=== PATIENT | male | born 1955 | race Caucasian/White ===

== ENCOUNTER → 2017-06-28 | Outpatient (CLI) | payer OTHER ==
[2017-06-28 09:13] LABS: ALT 48 U/L (21-72); AST 45 U/L (17-59); Alkaline Phosphatase 65 U/L (38-126); Anion Gap 12 mmol/L; Blood Urea Nitrogen 21 mg/dL (9-20); Calcium 9.5 mg/dL (8.4-10.2); Carbon Dioxide 24 mmol/L (22-30); Chloride 103 mmol/L (98-107); Cholesterol 162 mg/dL (<200); Glucose 193 mg/dL (74-99); HDL Cholesterol 46 mg/dL (40-60); LDL Cholesterol,Calculated 79 mg/dL (0-99); Potassium 4.8 mmol/L (3.5-5.1); Sodium 139 mmol/L (137-145); Total Bilirubin 0.6 mg/dL (0.2-1.3); Total Protein 6.9 g/dL (6.3-8.2); Triglycerides 186 mg/dL (<150)
[2017-06-28 18:40] LABS: Hemoglobin A1C 9.4 % (4.0-6.0)
== END | disposition home or self-care (01) ==
LOC: LABWHC1 08:05
PROVIDERS: ATTEND Internal Medicine Endocrinology, Diabetes & Metabolism
DX: E11.65 Type 2 diabetes mellitus with hyperglycemia (principal)
CPT/HCPCS: 36415; 80053; 80061; 82043; 82570; 83036

== ENCOUNTER 2017-12-02 00:17 | Emergency (ER) | payer OTHER ==
[2017-12-02 00:31] VITALS: RESP 18
[2017-12-02] MEDS ORDERED: SODIUM CHLORIDE 0.9% 1,000 ML IV STA (00:39)
[2017-12-02] MEDS ORDERED: ONDANSETRON 4 MG/2 ML VIAL IVP STA (00:39)
[2017-12-02] MEDS ORDERED: MORPHINE SULFATE 4 MG/ML SYRINGE IV STA (00:39)
--- NOTE | 2017-12-02 00:52 | ED ---
Abdominal Pain HPI - General Source: patient Mode of arrival: ambulatory Limitations: no limitations <Julia Turcios - Last Filed: 12/02/17 05:02> <Inessa Espana - Last Filed: 12/02/17 08:36> - General Chief Complaint: Abdominal Pain Stated Complaint: groin pain Time Seen by Provider: 12/02/17 00:34 - History of Present Illness Initial Comments: 62-year-old male patient presents to the emergency department today for evaluation of right lower quadrant abdominal pain. Patient states that the pain started around 12:00 this afternoon. Patient states that didn't pain has gradually worsened doesn't has progressed. Patient states the pain is severe and radiates across to the left lower quadrant. Patient states that he has been nauseated but has not vomited. He denies any fevers or chills with this. He denies any constipation or diarrhea. Denies any hematuria, dysuria, urinary frequency, urinary urgency. He denies any radiation of the pain into his back. Denies any history of similar symptoms. Patient has had cholecystectomy but no other abdominal surgeries. Patient denies any recent rash, shortness breath, chest pain, numbness, tingling, dizziness, weakness, headache, visual changes, or any other complaints. (Julia Turcios) - Related Data Home Medications Medication Instructions Recorded Confirmed Lisinopril [Zestril] 10 mg PO DAILY 09/07/15 09/07/15 [place]-3 Fatty Acids/Fish Oil [Fish 2 cap PO DAILY 09/07/15 09/07/15 Oil 1,000 mg Softgel] Potassium Gluconate 595mg 595 mg PO BID 09/07/15 09/07/15 metFORMIN HCL [Glucophage] 500 mg PO DAILY 09/07/15 09/07/15 Allergies Allergy/AdvReac Type Severity Reaction Status Date / Time No Known Allergies Allergy Verified 12/02/17 00:31 Review of Systems ROS Other: All systems not noted in ROS Statement are negative. <Julia Turcios - Last Filed: 12/02/17 05:02> ROS Other: All systems not noted in ROS Statement are negative. <Inessa Espana - Last Filed: 12/02/17 08:36> ROS Statement: Those systems with pertinent positive or pertinent negative responses have been documented in the HPI. Past Medical History Past Medical History: Diabetes Mellitus History of Any Multi-Drug Resistant Organisms: None Reported Past Surgical History: Adenoidectomy, Cholecystectomy, Orthopedic Surgery, Tonsillectomy Past Psychological History: No Psychological Hx Reported Smoking Status: Former smoker Past Alcohol Use History: Occasional Past Drug Use History: None Reported <Julia Turcios - Last Filed: 12/02/17 05:02> General Exam Limitations: no limitations General appearance: alert, in no apparent distress, other (This is a well- developed, obese adult male patient in mild distress related to pain. Vital signs upon presentation are temperature 98.7F, pulse 82, respirations 18, blood pressure 150/93, pulse ox 97% on room air.) Eye exam: Present: normal appearance, PERRL, EOMI. Absent: scleral icterus, conjunctival injection, periorbital swelling ENT exam: Present: normal exam, normal oropharynx, mucous membranes moist Respiratory exam: Present: normal lung sounds bilaterally. Absent: respiratory distress, wheezes, rales, rhonchi, stridor Cardiovascular Exam: Present: regular rate, normal rhythm, normal heart sounds. Absent: systolic murmur, diastolic murmur, rubs, gallop, clicks GI/Abdominal exam: Present: soft, tenderness (Right lower quadrant tenderness, suprapubic tenderness), guarding, normal bowel sounds. Absent: distended, rebound, rigid Back exam: Present: normal inspection. Absent: CVA tenderness (R), CVA tenderness (L) Neurological exam: Present: alert, oriented X3, CN II-XII intact Psychiatric exam: Present: normal affect, normal mood Skin exam: Present: warm, dry, intact, normal color. Absent: rash <Julia Turcios M - Last Filed: 12/02/17 05:02> Vital Signs 12/02/17 12/02/17 12/02/17 00:28 02:18 03:29 Temperature 98.7 F 97.0 F L Pulse Rate 82 79 Respiratory 18 18 18 Rate Blood Pressure 158/93 158/67 O2 Sat by Pulse 97 96 Oximetry 12/02/17 04:38 Temperature Pulse Rate 70 Respiratory 18 Rate Blood Pressure 137/67 O2 Sat by Pulse 95 Oximetry Medical Decision Making - Lab Data Result diagrams: 12/02/17 00:55 12/02/17 00:55 - Radiology Data Radiology results: report reviewed, image reviewed <Julia Turcios - Last Filed: 12/02/17 05:02> - Lab Data Result diagrams: 12/02/17 00:55 12/02/17 00:55 <Inessa Espana - Last Filed: 12/02/17 08:36> - Medical Decision Making 62-year-old male patient presents to the emergency department today for evaluation of right lower quadrant abdominal pain that radiates across his lower abdomen. Physical examination did reveal some right lower quadrant tenderness, mild. Umbilical tenderness. Labs reviewed and did reveal an elevated white blood cell count at 12.5. Patient is afebrile with normal vital signs. Computed tomography scan of the abdomen and pelvis was obtained and did show presence of a fat-containing umbilical hernia and a calcification to the appendix without evidence of appendicitis. I did discuss findings and results with the patient. After receiving pain medication here in the department his symptoms are improved. He is instructed to follow-up with an abdominal surgeon for further evaluation of both the hernia and the appendix abnormalities. Patient has seen and had procedures by Dr. Jenkins in the past and requests to be referred to him. He is instructed to return here immediately should he develop any new, worsening, or concerning symptoms. Return parameters were discussed in detail. He verbalizes understanding and agrees with this plan. (Julia Turcios) I was available for consultation in the emergency department. The history and physical exam were done by the midlevel provider. I was consulted for this patient's care. I reviewed the case with the midlevel provider and based on their presentation of the patient, I agree with the assessment, medical decision making and plan of care as documented. (Inessa Espana) - Lab Data Lab Results 12/02/17 12/02/17 12/02/17 Range/Units 00:55 00:55 00:55 WBC 12.5 H (3.8-10.6) k/uL RBC 5.00 (4.30-5.90) m/uL Hgb 14.7 (13.0-17.5) gm/dL Hct 45.3 (39.0-53.0) % MCV 90.6 (80.0-100.0) fL MCH 29.3 (25.0-35.0) pg MCHC 32.4 (31.0-37.0) g/dL RDW 13.7 (11.5-15.5) % Plt Count 227 (150-450) k/uL Neutrophils % 64 % Lymphocytes % 25 % Monocytes % 7 % Eosinophils % 3 % Basophils % 1 % Neutrophils # 7.9 H (1.3-7.7) k/uL Lymphocytes # 3.1 (1.0-4.8) k/uL Monocytes # 0.9 (0-1.0) k/uL Eosinophils # 0.4 (0-0.7) k/uL Basophils # 0.1 (0-0.2) k/uL Sodium 136 L (137-145) mmol/L Potassium 4.5 (3.5-5.1) mmol/L Chloride 104 (98-107) mmol/L Carbon Dioxide 22 (22-30) mmol/L Anion Gap 10 mmol/L BUN 17 (9-20) mg/dL Creatinine 0.67 (0.66-1.25) mg/dL Est GFR (CKD-EPI)AfAm >90 (>60 ml/min/1.73 sqM) Est GFR (CKD-EPI)NonAf >90 (>60 ml/min/1.73 sqM) Glucose 204 H (74-99) mg/dL Plasma Lactic Acid Luis M 1.9 (0.7-2.0) mmol/L Calcium 9.4 (8.4-10.2) mg/dL Total Bilirubin 0.5 (0.2-1.3) mg/dL AST 30 (17-59) U/L ALT 37 (21-72) U/L Alkaline Phosphatase 60 (38-126) U/L Total Protein 6.8 (6.3-8.2) g/dL Albumin 3.8 (3.5-5.0) g/dL Amylase 52 (30-110) U/L Lipase 86 (23-300) U/L Urine Color Urine Appearance (Clear) Urine pH (5.0-8.0) Ur Specific [place] (1.001-1.035) Urine Protein (Negative) Urine Glucose (UA) (Negative) Urine Ketones (Negative) Urine Blood (Negative) Urine Nitrite (Negative) Urine Bilirubin (Negative) Urine Urobilinogen (<2.0) mg/dL Ur Leukocyte Esterase (Negative) 09/25/18 Range/Units 03:28 WBC (3.8-10.6) k/uL RBC (4.30-5.90) m/uL Hgb (13.0-17.5) gm/dL Hct (39.0-53.0) % MCV (80.0-100.0) fL MCH (25.0-35.0) pg MCHC (31.0-37.0) g/dL RDW (11.5-15.5) % Plt Count (150-450) k/uL Neutrophils % % Lymphocytes % % Monocytes % % Eosinophils % % Basophils % % Neutrophils # (1.3-7.7) k/uL Lymphocytes # (1.0-4.8) k/uL Monocytes # (0-1.0) k/uL Eosinophils # (0-0.7) k/uL Basophils # (0-0.2) k/uL Sodium (137-145) mmol/L Potassium (3.5-5.1) mmol/L Chloride (98-107) mmol/L Carbon Dioxide (22-30) mmol/L Anion Gap mmol/L BUN (9-20) mg/dL Creatinine (0.66-1.25) mg/dL Est GFR (CKD-EPI)AfAm (>60 ml/min/1.73 sqM) Est GFR (CKD-EPI)NonAf (>60 ml/min/1.73 sqM) Glucose (74-99) mg/dL Plasma Lactic Acid Luis M (0.7-2.0) mmol/L Calcium (8.4-10.2) mg/dL Total Bilirubin (0.2-1.3) mg/dL AST (17-59) U/L ALT (21-72) U/L Alkaline Phosphatase (38-126) U/L Total Protein (6.3-8.2) g/dL Albumin (3.5-5.0) g/dL Amylase (30-110) U/L Lipase (23-300) U/L Urine Color Light Yellow Urine Appearance Clear (Clear) Urine pH 5.0 (5.0-8.0) Ur Specific [place] 1.050 H (1.001-1.035) Urine Protein Negative (Negative) Urine Glucose (UA) Trace H (Negative) Urine Ketones Negative (Negative) Urine Blood Negative (Negative) Urine Nitrite Negative (Negative) Urine Bilirubin Negative (Negative) Urine Urobilinogen <2.0 (<2.0) mg/dL Ur Leukocyte Esterase Negative (Negative) - Radiology Data CT abdomen and pelvis with contrast was obtained. Report was reviewed in its entirety. Impression by Dr. Chowdhury shows spondylotic changes in the lumbar spine. Appendix calcification could relate to previous contrast or appendicolith. No definite sign of appendicitis. Incarcerated umbilical hernia contains fat. No evidence of scrotal or inguinal hernia. Do not see across her groin pain. (Julia Turcios) Disposition Is patient prescribed a controlled substance at d/c from ED?: No Time of Disposition: 04:21 <Julia Turcios - Last Filed: 12/02/17 05:02> <Inessa Espana - Last Filed: 12/02/17 08:36> Clinical Impression: Abdominal pain, Appendicolith, Umbilical hernia Disposition: HOME SELF-CARE Condition: Good Instructions: Umbilical Hernia (ED), Abdominal Pain (ED) Additional Instructions: Follow-up with Dr. Sewell for further evaluation of your umbilical hernia and calcification to the appendix. Take medications as directed. Return to the emergency department for any new, worsening, or concerning symptoms. Referrals: Cody He DO [Primary Care Provider] - 1-2 days Syed Sewell MD [Medical Doctor] - 1-2 days
[2017-12-02 01:33] LABS: Basophils # (A) 0.1 k/uL (0-0.2); Basophils % (A) 1 %; Eosinophils # (A) 0.4 k/uL (0-0.7); Eosinophils % (A) 3 %; HCT 45.3 % (39.0-53.0); HGB 14.7 gm/dL (13.0-17.5); Lymphocytes # (A) 3.1 k/uL (1.0-4.8); Lymphocytes % (A) 25 %; MCH 29.3 pg (25.0-35.0); MCHC 32.4 g/dL (31.0-37.0); MCV 90.6 fL (80.0-100.0); Mean Platelet Volume 6.8; Monocytes # (A) 0.9 k/uL (0-1.0); Monocytes % (A) 7 %; Neutrophils # (A) 7.9 k/uL (1.3-7.7); Neutrophils % (A) 64 %; Platelet Count 227 k/uL (150-450); RDW 13.7 % (11.5-15.5); WBC 12.5 k/uL (3.8-10.6)
[2017-12-02 02:11] LABS: ALT 37 U/L (21-72); AST 30 U/L (17-59); Albumin 3.8 g/dL (3.5-5.0); Alkaline Phosphatase 60 U/L (38-126); Amylase 52 U/L (30-110); Anion Gap 10 mmol/L; Blood Urea Nitrogen 17 mg/dL (9-20); Calcium 9.4 mg/dL (8.4-10.2); Carbon Dioxide 22 mmol/L (22-30); Chloride 104 mmol/L (98-107); Glucose 204 mg/dL (74-99); Lipase 86 U/L (23-300); Potassium 4.5 mmol/L (3.5-5.1); Sodium 136 mmol/L (137-145); Total Bilirubin 0.5 mg/dL (0.2-1.3); Total Protein 6.8 g/dL (6.3-8.2)
--- NOTE | 2017-12-02 02:53 | CT ---
EXAMINATION TYPE: CT abdomen pelvis w con DATE OF EXAM: 12/02/2017 COMPARISON: None HISTORY: Pt. c/o bi-lateral groin pain CT DLP: 3952.80 mGycm Automated exposure control for dose reduction was used. TECHNIQUE: Helical acquisition of images was performed from the lung bases through the pelvis. CONTRAST: Performed without Oral Contrast and with IV Contrast, patient injected with 100 mL of Isovue 300. FINDINGS: Lung bases are clear. There is no pleural effusion. Heart size is normal. There is small hiatal hernia. Stomach appears normal. Liver spleen pancreas appear normal. There are clips from cholecystectomy. Bile ducts are not dilated. There is no adrenal mass. Kidneys show satisf actory contrast opacification. There is no hydronephrosis. I see no renal calculus. ureters are not d ilated. There is no retroperitoneal adenopathy. There is no mesenteric adenopathy. There is umbilical hernia that contains fat. This measures 8 cm in diameter. I see no intestinal wall thickening. There are no dilated loops. There is no sign of a bowel obstruction. There is some calcification in the ap pendix. I see no sign of appendicitis. Bladder distends smoothly. There is no evidence of a pelvic ma ss. There is no inguinal hernia. There are spondylotic changes in the lumbar spine. I see no bony joan tructive process. Abdominal aorta is atheromatous. IMPRESSION: SPONDYLOTIC CHANGES IN THE LUMBAR SPINE. APPENDIX CALCIFICATION COULD RELATE TO PREVIOUS CONTRAST OR APPENDICOLITH. NO DEFINITE SIGN OF APPENDICITIS. INCARCERATED UMBILICAL HERNIA CONTAINS FAT. NO EVIDE NCE OF SCROTAL OR INGUINAL HERNIA. I DO NOT SEE CAUSE FOR GROIN PAIN.
[2017-12-02] MEDS ORDERED: MORPHINE SULFATE 4 MG/ML SYRINGE IVP STA (03:26)
[2017-12-02 03:30] VITALS: TEMP 97
[2017-12-02 04:00] LABS: Appearance,Urine Clear (Clear); Bilirubin,Urine Negative (Negative); Blood,Urine Negative (Negative); Color,Urine Light Yellow; Glucose,Urine (UA) Trace (Negative); Ketones,Urine Negative (Negative); Leukocyte Esterase,Urine Negative (Negative); Nitrite,Urine Negative (Negative); Protein,Urine Negative (Negative); Urobilinogen,Urine <2.0 mg/dL (<2.0)
[2017-12-02] MEDS ORDERED: ACET/COD 300 MG/30 MG STARTER PACK 6 TAB BTL PO STA (04:21)
[2017-12-02] MEDS ORDERED: ONDANSETRON 4 MG ODT STARTER PACK 2 TAB BTL PO STA (04:21)
[2017-12-02 04:40] VITALS: BP 137/67; PULSE 70
== END 2017-12-02 04:43 | disposition home or self-care (01) ==
LOC: EC 00:17
DX: K42.9 Umbilical hernia without obstruction or gangrene (principal); K38.9 Disease of appendix, unspecified; E11.9 Type 2 diabetes mellitus without complications; Z79.84 Long term (current) use of oral hypoglycemic drugs; Z79.899 Other long term (current) drug therapy; Z87.891 Personal history of nicotine dependence; Z90.49 Acquired absence of other specified parts of digestive tract
CPT/HCPCS: 36415; 80053; 82150; 83605; 83690; 85025; 81003; 87040; 74177; 99284; 96374; 96375; 96376 ×2; 96361 ×3; J2270; J2405; S0119; Q9967

== ENCOUNTER 2017-12-03 18:47 | Inpatient (IN) | payer OTHER ==
--- NOTE | 2017-12-03 19:00 | P.GSHP ---
History of Present Illness H&P Date: 12/03/17 Chief Complaint: Acute appendicitis Patient seen in the office today. He presents with a 48 hour history of right lower quadrant pain. Increasing in severity. Some nausea but no vomiting. Decreased appetite. No fevers. CAT scan in the ER yesterday showed an appendicolith without inflammatory changes. Repeat CAT scan with oral contrast today shows increased inflammatory changes. Past Medical History Past Medical History: Diabetes Mellitus History of Any Multi-Drug Resistant Organisms: None Reported Past Surgical History: Adenoidectomy, Cholecystectomy, Orthopedic Surgery, Tonsillectomy Past Psychological History: No Psychological Hx Reported Smoking Status: Former smoker Past Alcohol Use History: Occasional Past Drug Use History: None Reported Medications and Allergies Home Medications Medication Instructions Recorded Confirmed Type Lisinopril [Zestril] 10 mg PO DAILY 09/07/15 09/07/15 History [place]-3 Fatty Acids/Fish Oil [Fish 2 cap PO DAILY 09/07/15 09/07/15 History Oil 1,000 mg Softgel] Potassium Gluconate 595mg 595 mg PO BID 09/07/15 09/07/15 History metFORMIN HCL [Glucophage] 500 mg PO DAILY 09/07/15 09/07/15 History Allergies Allergy/AdvReac Type Severity Reaction Status Date / Time No Known Allergies Allergy Verified 12/02/17 00:31 Surgical - Exam Physical exam: General: Well-developed, well-nourished HEENT: Normocephalic, sclerae nonicteric Abdomen: Right lower quadrant tenderness, large protuberant abdomen, nondistended Extremities: No edema Neuro: Alert and oriented Assessment and Plan (1) Acute appendicitis Narrative/Plan: Clinical scenario discussed with the patient. Recent CAT scan findings reviewed. We'll proceed with laparoscopic, possible open appendectomy. Risks of bleeding, infection, conversion, bowel injury, ureteral injury, abscess, possible need for laparotomy. Patient understands and wishes to proceed. Current Visit: Yes Status: Acute Code(s): K35.80 - UNSPECIFIED ACUTE APPENDICITIS SNOMED Code(s): 52243521
[2017-12-03] MEDS ORDERED: PIPERACILLIN-TAZOBACTAM 3.375 GM in DEXTROSE/WATER 1 50ML.BAG IVPB STA (19:02)
[2017-12-03] MEDS ORDERED: LACTATED RINGERS 1,000 ML IV ONE ×2 (19:20→21:30)
[2017-12-03 19:30] LABS: Glucose,Whole Blood 164 mg/dL (75-99)
[2017-12-03] MEDS ORDERED: HYDROmorphone (PF) 1 MG/ML ONE (19:30)
[2017-12-03] MEDS ORDERED: LIDOCAINE 1% INJ 10MG/ML (20 ML MDV) ONE (19:30)
[2017-12-03] MEDS ORDERED: NEOSTIGMINE 1 MG/ML 10 ML VIAL ONE (19:30)
[2017-12-03] MEDS ORDERED: ONDANSETRON 4 MG/2 ML VIAL ONE (19:30)
[2017-12-03] MEDS ORDERED: ROCURONIUM BROMIDE 10 MG/ML 10 ML VIAL IV ONE (19:30)
[2017-12-03] MEDS ORDERED: GLYCOPYRROLATE 0.2 MG/ML 2 ML VIAL ONE (19:30)
[2017-12-03] MEDS ORDERED: SUCCINYLCHOLINE CHLORIDE VIAL 200 MG/10 ML VIAL IV ONE (19:30)
[2017-12-03] MEDS ORDERED: PROPOFOL 10 MG/ML 20 ML VIAL IV ONE (19:30)
[2017-12-03] MEDS ORDERED: MIDAZOLAM 2 MG/2 ML VIAL ONE (19:30)
[2017-12-03] MEDS ORDERED: fentaNYL (PF) 50 MCG/ML 2 ML AMP ONE (19:30)
[2017-12-03] MEDS ORDERED: HEPARIN SODIUM,PORCINE 5,000 UNIT/ML 1 ML VIAL ONE (19:30)
[2017-12-03] MEDS ORDERED: SODIUM CHLORIDE 0.9% 50 ML with ceFAZolin 3,000 MG IV ONE ×2 (19:45)
[2017-12-03] MEDS ORDERED: BUPIVACAIN-EPI 0.25%-1:200,000 30 ML VIAL SQ ONE ×2 (19:55)
[2017-12-03] MEDS ORDERED: NALOXONE 0.4 MG/ML 1 ML VIAL IV PRN (20:54)
[2017-12-03] MEDS ORDERED: ACETAMINOPHEN TAB 325 MG TAB PO PRN (20:54)
[2017-12-03] MEDS ORDERED: HYDROmorphone 1 MG/ML 1 ML SYRINGE IVP PRN (20:54)
[2017-12-03] MEDS ORDERED: METOCLOPRAMIDE 5 MG/ML 2 ML VIAL IVP PRN (20:54)
[2017-12-03] MEDS ORDERED: ONDANSETRON 4 MG/2 ML VIAL IVP PRN (20:54)
--- NOTE | 2017-12-03 21:01 | P.OP ---
Date of Procedure: 12/03/17 Procedure(s) Performed: PREOPERATIVE DIAGNOSIS: Acute appendicitis POSTOPERATIVE DIAGNOSIS: Same with small perforation PROCEDURE: Laparoscopic appendectomy SURGEON: Melodie EBL: Total ANESTHESIA: General COMPLICATIONS: None OPERATIVE PROCEDURE: The patient was brought and placed on the operating table in the supine position. The patient was placed under general anesthesia. The abdomen was prepped and draped in the usual sterile fashion. A small incision was made in the left lower quadrant. The optical 5 mm trocar was used to enter the peritoneal cavity at that location. This was later switched to a 12 mm trocar. Insufflation took place to 15 mmHg. An additional 5 mm suprapubic trocar was placed under direct visualization as well as a 5 mm right upper quadrant trocar under direct visualization. The appendix was inspected. It was acutely inflamed. It was adherent to the abdominal wall and right lower quadrant. Blunt dissection took place. The area of inflammatory change in the appendix was proximal. There was noted be a very small perforation proximally. Dissection at the base of the appendix adjacent to the cecum took place bluntly. The base of the cecum was then divided using a linear 60 mm blue load trocar. The mesentery was divided using the LigaSure device. No bleeding was seen. The area was irrigated with saline. No bleeding or purulence was identified. The appendix was removed from the 12 mm trocar site using an Endo Catch bag. I placed a drain at the level of the right lower quadrant and staple line. The drain was sutured to the skin using a 3-0 silk stitch. The 12 mm trocar site was closed using a 0 Vicryl stitch. The skin at all 3 remaining trocar sites was closed using 4-0 Monocryl sutures. Steri-Strips and sterile dressings then applied. DISPOSITION: Stable to recovery room
[2017-12-03 21:25] LABS: Glucose,Whole Blood 208 mg/dL (75-99)
[2017-12-03] MEDS ORDERED: INSULIN ASPART 100 UNIT/ML 1 ML 10 ML VIAL SQ ONE (21:25)
[2017-12-03] MEDS: D5-0.45% NACL WITH KCL 20MEQ/L 1,000 ML IV SCH (22:03)
[2017-12-03] MEDS: KETOROLAC 30 MG/ML 1 ML VIAL IVP SCH (22:04)
[2017-12-03 23:46] VITALS: BMI 48.8
[2017-12-04] MEDS: HEPARIN SODIUM,PORCINE 5,000 UNIT/ML 1 ML VIAL SQ SCH ×4 (01:02→23:54)
[2017-12-04] MEDS: KETOROLAC 30 MG/ML 1 ML VIAL IVP SCH ×4 (04:53→23:53)
[2017-12-04] MEDS: PIPERACILLIN-TAZOBACTAM 3.375 GM in DEXTROSE/WATER 1 50ML.BAG IVPB SCH ×3 (04:54→20:23)
[2017-12-04] MEDS: D5-0.45% NACL WITH KCL 20MEQ/L 1,000 ML IV SCH ×3 (06:03→20:36)
[2017-12-04 06:54] LABS: Glucose,Whole Blood 215 mg/dL (75-99)
[2017-12-04 07:15] LABS: Basophils % (A) 0 %; Eosinophils # (A) 0.1 k/uL (0-0.7); Eosinophils % (A) 1 %; HCT 42.6 % (39.0-53.0); HGB 13.7 gm/dL (13.0-17.5); Lymphocytes # (A) 2.2 k/uL (1.0-4.8); Lymphocytes % (A) 18 %; MCH 29.8 pg (25.0-35.0); MCV 92.9 fL (80.0-100.0); Mean Platelet Volume 6.6; Monocytes # (A) 0.8 k/uL (0-1.0); Monocytes % (A) 6 %; Neutrophils # (A) 9.2 k/uL (1.3-7.7); Neutrophils % (A) 74 %; Platelet Count 197 k/uL (150-450); RBC 4.59 m/uL (4.30-5.90); RDW 13.5 % (11.5-15.5); WBC 12.5 k/uL (3.8-10.6)
[2017-12-04 07:46] LABS: ALT 24 U/L (21-72); AST 24 U/L (17-59); Albumin 3.2 g/dL (3.5-5.0); Alkaline Phosphatase 57 U/L (38-126); Anion Gap 7 mmol/L; Blood Urea Nitrogen 12 mg/dL (9-20); Calcium 8.7 mg/dL (8.4-10.2); Carbon Dioxide 28 mmol/L (22-30); Chloride 100 mmol/L (98-107); Glucose 226 mg/dL (74-99); Potassium 4.3 mmol/L (3.5-5.1); Sodium 135 mmol/L (137-145); Total Bilirubin 0.5 mg/dL (0.2-1.3); Total Protein 6.1 g/dL (6.3-8.2)
[2017-12-04] MEDS: GLIMEPIRIDE 4 MG TAB PO SCH (07:51)
[2017-12-04] MEDS: LISINOPRIL 10 MG TAB PO SCH (07:51)
[2017-12-04] MEDS: HYDROcodone/APAP 5-325MG 1 EACH TAB PO PRN ×2 (07:52→20:35)
[2017-12-04] MEDS: metFORMIN 500 MG TAB PO SCH ×2 (07:52→20:23)
[2017-12-04] MEDS: INSULIN ASPART 100 UNIT/ML 1 ML 10 ML VIAL SQ SCH ×4 (07:57→20:24)
[2017-12-04] MEDS ORDERED: PANTOPRAZOLE 40 MG/10 ML VIAL IV SCH (09:00)
--- NOTE | 2017-12-04 09:12 | P.PN ---
<Crystal Pandyasabiha Collier - Last Filed: 12/04/17 09:04> Subjective Progress Note Date: 12/04/17 62-year-old gentleman seen at the bedside currently sitting up in a chair family at bedside patient states has been up ambulating to the bathroom and back passing gas no stool urinating no difficulty states pain medication effective for pain control white count this morning 12.5 admitting white count 12.5 hemoglobin 13.7 electrolytes within normal limits afebrile surgical dressings dry KRUPA drain in place moderate amount of bloody drainage noted in the bulb Initial presentation to the emergency room with a history of 48 hours of right lower quadrant abdominal pain which has increased in severity nausea sensation no active emesis CAT scan in the emergency room the day before showed no inflammatory changes a repeat CAT scan with oral contrast done on the showed increase inflammatory changes. On December 03 underwent a laparoscopic appendectomy with small perforation due to acute appendicitis Objective - Vital Signs Vital signs: Vital Signs Temp 98.2 F 12/04/17 07:00 Pulse 77 12/04/17 07:00 Resp 14 12/04/17 07:00 BP 129/72 12/04/17 07:00 Pulse Ox 96 12/04/17 07:00 Intake & Output 12/03/17 12/04/17 12/04/17 18:59 06:59 18:59 Intake Total 1200 Output Total 40 Balance 1160 Weight 158.757 kg Intake: IV 1200 Output: Drainage 30 Lower Abdomen 30 Estimated Blood Loss 10 Other: # Voids 1 1 - Exam Physical exam 62-year-old gentleman sitting up in a chair pleasant appears in no acute distress Lungs adequate air movement bilaterally on room air no shortness of breath Heart S1-S2 audible regular denying chest pain Abdomen obese large protuberant abdomen nondistended surgical tenderness appropriate surgical dressings dry to surgical site KRUPA drain in place moderate amount of bloody drainage noted urinating no difficulty no stool passing gas tolerating clear liquid diet Extremities Venodyne's on to the bilateral lower extremities - Labs CBC & Chem 7: 12/04/17 06:46 12/04/17 06:46 Labs: Abnormal Lab Results - Last 24 Hours (Table) 12/03/17 12/03/17 12/04/17 Range/Units 19:26 21:22 06:46 WBC 12.5 H (3.8-10.6) k/uL Neutrophils # 9.2 H (1.3-7.7) k/uL Sodium (137-145) mmol/L Glucose (74-99) mg/dL POC Glucose (mg/dL) 164 H 208 H (75-99) mg/dL Total Protein (6.3-8.2) g/dL Albumin (3.5-5.0) g/dL 12/04/17 12/04/17 Range/Units 06:46 06:52 WBC (3.8-10.6) k/uL Neutrophils # (1.3-7.7) k/uL Sodium 135 L (137-145) mmol/L Glucose 226 H (74-99) mg/dL POC Glucose (mg/dL) 215 H (75-99) mg/dL Total Protein 6.1 L (6.3-8.2) g/dL Albumin 3.2 L (3.5-5.0) g/dL Assessment and Plan Assessment: Impression Present on admission right lower quadrant abdominal pain suspect due to acute appendicitis Postop December 03 laparoscopic appendectomy with small bowel perforation due to acute appendicitis Morbid obesity BMI 48 Present on admission leukocytosis CAT scan of the abdomen with oral contrast showed increased inflammatory changes Plan Repeat a CBC this morning Continue postop surgical care Increase activity Pain control DVT and GI prophylaxis The above impression and plan of care have been discussed and directed by signing physician. Olena Pandya nurse practitioner acting as scribe for signing physician. <Syed Sewell - Last Filed: 12/04/17 15:27> Objective - Vital Signs Vital signs: Vital Signs Temp 98.5 F 12/04/17 14:58 Pulse 72 12/04/17 14:58 Resp 12 12/04/17 14:58 BP 124/72 12/04/17 14:58 Pulse Ox 94 L 12/04/17 14:58 Intake & Output 12/03/17 12/04/17 12/04/17 18:59 06:59 18:59 Intake Total 1200 1050 Output Total 40 Balance 1160 1050 Weight 158.757 kg Intake: IV 1200 Intake, IV Titration 1050 Amount D5-0.45% NaCl with KCl 1000 20Meq/l 1,000 ml @ 125 mls/hr IV .Q8H [facility] Rx#: [id number] Piperacillin-Tazobactam 3 50 .375 gm In Dextrose/Water 1 50ml.bag @ 12.5 mls/hr IVPB Q8H [facility] Rx#: [id number] Output: Drainage 30 Lower Abdomen 30 Estimated Blood Loss 10 Other: # Voids 1 3 - Labs CBC & Chem 7: 12/04/17 06:46 12/04/17 06:46 Labs: Abnormal Lab Results - Last 24 Hours (Table) 12/03/17 12/03/17 12/04/17 Range/Units 19:26 21:22 06:46 WBC 12.5 H (3.8-10.6) k/uL Neutrophils # 9.2 H (1.3-7.7) k/uL Sodium (137-145) mmol/L Glucose (74-99) mg/dL POC Glucose (mg/dL) 164 H 208 H (75-99) mg/dL Total Protein (6.3-8.2) g/dL Albumin (3.5-5.0) g/dL 12/04/17 12/04/17 12/04/17 Range/Units 06:46 06:52 11:47 WBC (3.8-10.6) k/uL Neutrophils # (1.3-7.7) k/uL Sodium 135 L (137-145) mmol/L Glucose 226 H (74-99) mg/dL POC Glucose (mg/dL) 215 H 171 H (75-99) mg/dL Total Protein 6.1 L (6.3-8.2) g/dL Albumin 3.2 L (3.5-5.0) g/dL Assessment and Plan Assessment: As above. Patient doing much better. White blood cell count today 12.5. He is afebrile. Tolerating his diet. KRUPA drain sterile saline was. Continue antibiotics. Probable discharge tomorrow. (1) Acute appendicitis Current Visit: Yes Status: Acute Code(s): K35.80 - UNSPECIFIED ACUTE APPENDICITIS SNOMED Code(s): 73154757
--- NOTE | 2017-12-04 11:30 | P.CONS ---
History of Present Illness - Reason for Consult Consult date: 12/04/17 Medical management Requesting physician: Seyd Sewell - Chief Complaint Right lower quadrant pain - History of Present Illness 62-year-old male with a past medical history of diabetes mellitus and hypertension who underwent a laparoscopic appendectomy on 12/03/[address] He was consulted for medical management. the patient was seen and examined at the bedside this morning. Patient states his pain is tolerable at this time. He denies shortness of breath, cough, or congestion. Denies chest pain or pressure. Denies nausea or vomiting. He reports he is passing flatus but has not had a bowel movement this morning. No difficulties voiding. reports he has been ambulating. white count this morning is 12.5. Hemoglobin 13.7. Sodium 135. Potassium 4.3. Glucose 226. Review of Systems Those systems with pertinent positive or pertinent negative responses have been documented in the HPI Past Medical History Past Medical History: Diabetes Mellitus, Hypertension History of Any Multi-Drug Resistant Organisms: None Reported Past Surgical History: Adenoidectomy, Cholecystectomy, Orthopedic Surgery, Tonsillectomy Past Psychological History: No Psychological Hx Reported Smoking Status: Former smoker Past Alcohol Use History: Occasional Past Drug Use History: None Reported - Past Family History Mother Additional Family Medical History / Comment(s): emphysema Father Family Medical History: Diabetes Mellitus Additional Family Medical History / Comment(s): stroke Medications and Allergies Home Medications Medication Instructions Recorded Confirmed Type Lisinopril [Zestril] 10 mg PO DAILY 09/07/15 12/03/17 History [place]-3 Fatty Acids/Fish Oil [Fish 2 cap PO DAILY 09/07/15 12/03/17 History Oil 1,000 mg Softgel] Potassium Gluconate 595mg 595 mg PO DAILY 09/07/15 12/03/17 History metFORMIN HCL [Glucophage] 1,000 mg PO BID 09/07/15 12/03/17 History Glimepiride [Amaryl] 4 mg PO DAILY 12/03/17 12/03/17 History Allergies Allergy/AdvReac Type Severity Reaction Status Date / Time No Known Allergies Allergy Verified 12/03/17 23:04 Physical Exam Vitals: Vital Signs Temp Pulse Pulse Resp BP BP Pulse Ox 12/04/17 07:00 98.2 F 77 14 129/72 96 12/03/17 23:50 79 149/80 12/03/17 23:35 83 163/77 12/03/17 23:20 78 136/79 12/03/17 23:05 80 137/76 12/03/17 22:50 80 138/78 12/03/17 22:35 79 132/74 12/03/17 22:20 77 135/76 12/03/17 21:50 98.0 F 80 17 159/79 93 L 12/03/17 21:38 77 16 159/72 96 12/03/17 21:19 80 18 96 12/03/17 21:04 97.1 F L 76 20 140/71 95 12/03/17 19:27 97.2 F L 87 18 152/79 96 Intake and Output 12/03/17 12/04/17 12/04/17 22:59 06:59 14:59 Intake Total 1200 Output Total 10 30 Balance 1190 -30 Intake: IV 1200 Output: Drainage 30 Lower Abdomen 30 Estimated Blood Loss 10 Other: # Voids 1 1 Weight 158.757 kg GENERAL: This is a 62-year-old male in no apparent distress at the time of examination. Pleasant and cooperative. HEENT: Head is atraumatic, normocephalic. Pupils are equal, round, and reactive to light. Sclerae anicteric. Conjunctivae are clear. Mucus membranes of the mouth are moist. Neck is supple. RESPIRATORY: Clear to ausculation. No wheezes, rales, or rhonchi. No use of accessory muscles. Patient maintaining oxygen saturation greater than 92%. No chest wall tenderness is noted on palpation or with deep breathing. CARDIOVASCULAR: Regular rate and rhythm. S1 and S2 noted. No systolic or diastolic murmur auscultated. No JVD noted. No S3 or S4 noted. GASTROINTESTINAL: Obese. Abdomen soft and round. Normal active bowel sounds auscultated x 4 quadrants. Dressings to abdomen clean dry and intact. KRUPA drain with moderate amount of sanguinous drainage present. INTEGUMENTARY: No cyanosis. No jaundice. No rashes noted. No cellulitis noted. EXTREMITIES: 2+ peripheral pulses. No evidence of peripheral edema. No calf tenderness noted. NEUROLOGIC: Cranial nerves II-XII intact. PSYCHIATRIC: Awake, alert, and oriented X 3. Appropriate affect. Intact judgement and insight. Results CBC & Chem 7: 09/27/18 06:46 12/04/17 06:46 Labs: Abnormal Lab Results - Last 24 Hours (Table) 12/03/17 12/03/17 12/04/17 Range/Units 19:26 21:22 06:46 WBC 12.5 H (3.8-10.6) k/uL Neutrophils # 9.2 H (1.3-7.7) k/uL Sodium (137-145) mmol/L Glucose (74-99) mg/dL POC Glucose (mg/dL) 164 H 208 H (75-99) mg/dL Total Protein (6.3-8.2) g/dL Albumin (3.5-5.0) g/dL 12/04/17 12/04/17 Range/Units 06:46 06:52 WBC (3.8-10.6) k/uL Neutrophils # (1.3-7.7) k/uL Sodium 135 L (137-145) mmol/L Glucose 226 H (74-99) mg/dL POC Glucose (mg/dL) 215 H (75-99) mg/dL Total Protein 6.1 L (6.3-8.2) g/dL Albumin 3.2 L (3.5-5.0) g/dL Assessment and Plan Plan: ASSESSMENT: Right lower quadrant pain secondary to acute appendicitis, s/p laparoscopic appendectomy with small bowel perforation Leukocytosis, secondary to above Diabetes mellitus, type II Hyperglycemia Hypertension Morbid obesity: BMI 48.8 Remote history of nicotine dependence PLAN: Continue postoperative surgical care per Dr. Sewell Pain control Activity as tolerated Monitor drainage from KRUPA drain Home meds as appropriate NovoLog sliding scale before meals and at bedtime Monitor labs Repeat CBC tomorrow morning. Continue antibiotics GI prophylaxis: Protonix 40 mg PO Daily DVT prophylaxis: SCDs to bilateral lower extremities Monitor vital signs and address as appropriate Thank you for this consultation We will continue to follow along with Neptali during his hospitalization Nurse practitioner note has been reviewed by physician. Signing provider agrees with the documented findings, assessment, and plan of care.
[2017-12-04 11:50] LABS: Glucose,Whole Blood 171 mg/dL (75-99)
[2017-12-04 16:05] LABS: Hemoglobin A1C 9.2 % (4.0-6.0)
[2017-12-04 16:52] LABS: Glucose,Whole Blood 169 mg/dL (75-99)
[2017-12-04 20:13] LABS: Glucose,Whole Blood 240 mg/dL (75-99)
[2017-12-05] MEDS: KETOROLAC 30 MG/ML 1 ML VIAL IVP SCH ×2 (04:16→12:29)
[2017-12-05] MEDS: PIPERACILLIN-TAZOBACTAM 3.375 GM in DEXTROSE/WATER 1 50ML.BAG IVPB SCH (04:17)
[2017-12-05] MEDS: D5-0.45% NACL WITH KCL 20MEQ/L 1,000 ML IV SCH (04:17)
[2017-12-05] MEDS: HYDROcodone/APAP 5-325MG 1 EACH TAB PO PRN (05:25)
[2017-12-05 05:55] LABS: Glucose,Whole Blood 237 mg/dL (75-99)
[2017-12-05 06:57] LABS: Glucose,Whole Blood 229 mg/dL (75-99)
[2017-12-05] MEDS ORDERED: PANTOPRAZOLE 40 MG TABLET PO SCH (07:30)
[2017-12-05] MEDS: INSULIN ASPART 100 UNIT/ML 1 ML 10 ML VIAL SQ SCH (07:59)
[2017-12-05] MEDS: GLIMEPIRIDE 4 MG TAB PO SCH (08:00)
[2017-12-05 08:03] LABS: Basophils % (A) 0 %; Eosinophils # (A) 0.4 k/uL (0-0.7); Eosinophils % (A) 4 %; HCT 43.3 % (39.0-53.0); HGB 14.2 gm/dL (13.0-17.5); Lymphocytes # (A) 2.1 k/uL (1.0-4.8); Lymphocytes % (A) 21 %; MCH 30.1 pg (25.0-35.0); MCHC 32.8 g/dL (31.0-37.0); MCV 91.9 fL (80.0-100.0); Mean Platelet Volume 7.6; Monocytes # (A) 0.7 k/uL (0-1.0); Monocytes % (A) 7 %; Neutrophils # (A) 6.5 k/uL (1.3-7.7); Neutrophils % (A) 66 %; Platelet Count 194 k/uL (150-450); RBC 4.71 m/uL (4.30-5.90); RDW 13.4 % (11.5-15.5); WBC 9.9 k/uL (3.8-10.6)
--- NOTE | 2017-12-05 09:20 | P.DS ---
Providers Date of admission: 12/03/17 20:57 62-year-old male presented to Dr. Sewell office would patient was being evaluated for right lower quadrant abdominal pain for the past 48 hours which had increased in severity. Patient stated he had no appetite but no fever chills felt nauseated but did not vomit patient stated that he did go to the emergency room the day before CAT scan in the ER yesterday showed an appendicolith without inflammatory changes. Repeat CAT scan with oral contrast today shows increased inflammatory changes. Patient was admitted and December 03 underwent a laparoscopic appendectomy with small perforation for acute appendicitis. There were no postop events. On the day of discharge patient was afebrile the white count 9.9 surgical dressing sites dry active bowel tones having bowel movements tolerating diet no nausea no vomiting Impression Present on admission right lower quadrant abdominal pain suspect due to acute appendicitis Postop December 03 laparoscopic appendectomy with small perforation due to acute appendicitis Morbid obesity BMI 48 Present on admission leukocytosis resolved CAT scan of the abdomen with oral contrast showed increased inflammatory changes The above impression and plan of care have been discussed and directed by signing physician. Olena Pandya nurse practitioner acting as scribe for signing physician. Attending physician: Syed Sewell Consults: 12/03/17 20:54 Consult Physician Routine Consulting Provider: Cody He Consult Reason/Comments: Medical management Do you want consulting provider notified?: Yes Primary care physician: Stated None Plan - Discharge Summary Discharge Rx Participant: Yes New Discharge Prescriptions: New Acetaminophen Tab [Tylenol] 650 mg PO Q6HR PRN tab PRN Reason: Mild Pain Or Fever >= 100.5 Amoxicillin/Potassium Clav [Augmentin 875-125 Tablet] 1 tab PO Q12HR #10 tab HYDROcodone/APAP 5-325MG [Alloy 5-325] 1 each PO Q4HR PRN #18 tab PRN Reason: Moderate Pain Continue Lisinopril [Zestril] 10 mg PO DAILY metFORMIN HCL [Glucophage] 1,000 mg PO BID Potassium Gluconate 595mg 595 mg PO DAILY [place]-3 Fatty Acids/Fish Oil [Fish Oil 1,000 mg Softgel] 2 cap PO DAILY Glimepiride [Amaryl] 4 mg PO DAILY Discharge Medication List Lisinopril [Zestril] 10 mg PO DAILY 09/07/15 [History] [place]-3 Fatty Acids/Fish Oil [Fish Oil 1,000 mg Softgel] 2 cap PO DAILY [History] Potassium Gluconate 595mg 595 mg PO DAILY 09/07/15 [History] metFORMIN HCL [Glucophage] 1,000 mg PO BID 09/07/15 [History] Glimepiride [Amaryl] 4 mg PO DAILY 12/03/17 [History] Acetaminophen Tab [Tylenol] 650 mg PO Q6HR PRN tab 12/05/17 [Rx] Amoxicillin/Potassium Clav [Augmentin 875-125 Tablet] 1 tab PO Q12HR #10 tab [Rx] HYDROcodone/APAP 5-325MG [Alloy 5-325] 1 each PO Q4HR PRN #18 tab 12/05/17 [Rx] Follow up Appointment(s)/Referral(s): Syed Sewell MD [Medical Doctor] - 12/10/17 2:50 pm Cody He DO [Doctor of Osteopathic Medicine] - 12/22/17 2:30 pm Activity/Diet/Wound Care/Special Instructions: No tub bath for six weeks. Shower daily. No lifting over 10 pounds for the next 4 weeks. Monitor KRUPA drain and record. May use ice packs to surgical site. No driving while taking narcotic for pain. May use [id number] stool softeners for constipation Low-fat diet Discharge Disposition: HOME SELF-CARE
[2017-12-05] MEDS: HEPARIN SODIUM,PORCINE 5,000 UNIT/ML 1 ML VIAL SQ SCH (09:29)
[2017-12-05] MEDS: LISINOPRIL 10 MG TAB PO SCH (09:29)
[2017-12-05] MEDS: metFORMIN 500 MG TAB PO SCH (09:29)
[2017-12-05 09:56] LABS: Glucose,Whole Blood 221 mg/dL (75-99)
--- NOTE | 2017-12-05 10:12 | P.PN ---
<Olena Pandya - Last Filed: 12/05/17 10:10> Progress Note - Text Progress Note Date: 12/05/17 Patient was scheduled to be discharged this morning. Patient was up ambulating in the hallway returned to his room sat on the edge of the bed reportedly told the roommate he did not feel well and collapsed in the bed. The nursing staff responded called the A team shortly after the event the patient did become arousable and was able to answer questions appropriately. The attending was notified. consult cardiology and pulmonology and hold the discharge today The above impression and plan of care have been discussed and directed by signing physician. Olena Pandya nurse practitioner acting as scribe for signing physician. <Syed Sewell - Last Filed: 12/05/17 15:22> Progress Note - Text Please see my dictation.
--- NOTE | 2017-12-05 10:45 | P.PN ---
Subjective Progress Note Date: 12/05/17 12/04/2017 62-year-old male with a past medical history of diabetes mellitus and hypertension who underwent a laparoscopic appendectomy on 12/03/[address] He was consulted for medical management. the patient was seen and examined at the bedside this morning. Patient states his pain is tolerable at this time. He denies shortness of breath, cough, or congestion. Denies chest pain or pressure. Denies nausea or vomiting. He reports he is passing flatus but has not had a bowel movement this morning. No difficulties voiding. reports he has been ambulating. white count this morning is 12.5. Hemoglobin 13.7. Sodium 135. Potassium 4.3. Glucose 226. 12/05/2017 Patient seen and examined at the bedside. Patient states he had a good afternoon yesterday and his pain was tolerable. He slept well overnight. This morning he developed some pain and took a [place] this morning on an empty stomach which led to some GI upset. He reports he did have a bowel movement. Denies chest pain or pressure. He is on nasal cannula with oxygen saturations greater than 92%. Objective - Vital Signs Vital signs: Vital Signs Temp 98.2 F 12/05/17 07:00 Pulse 87 12/05/17 07:00 Resp 18 12/05/17 07:00 BP 118/78 12/05/17 07:00 Pulse Ox 96 12/05/17 07:00 Intake & Output 12/04/17 12/05/17 12/05/17 18:59 06:59 18:59 Intake Total 1050 2027 240 Output Total 20 Balance 1050 2007 240 Intake: Intake, IV Titration 1050 948 Amount D5-0.45% NaCl with KCl 1000 848 20Meq/l 1,000 ml @ 125 mls/hr IV .Q8H [facility]ADA Rx#: [id number] Piperacillin-Tazobactam 3 50 100 .375 gm In Dextrose/Water 1 50ml.bag @ 12.5 mls/hr IVPB Q8H AMADA Rx#: [id number] Oral 1080 240 Output: Drainage 20 Lower Abdomen 20 Other: Voiding Method Toilet # Voids 3 1 # Bowel Movements 1 - Exam GENERAL: This is a 62-year-old male in no apparent distress at the time of examination. Pleasant and cooperative. HEENT: Head is atraumatic, normocephalic. Pupils are equal, round, and reactive to light. Sclerae anicteric. Conjunctivae are clear. Mucus membranes of the mouth are moist. Neck is supple. RESPIRATORY: Clear to ausculation, diminished. No wheezes, rales, or rhonchi. No use of accessory muscles. Patient maintaining oxygen saturation greater than 92%. No chest wall tenderness is noted on palpation or with deep breathing. CARDIOVASCULAR: Regular rate and rhythm. S1 and S2 noted. No systolic or diastolic murmur auscultated. No JVD noted. No S3 or S4 noted. GASTROINTESTINAL: Obese. Abdomen soft and round. Normal active bowel sounds auscultated x 4 quadrants. Dressings to abdomen clean dry and intact. INTEGUMENTARY: No cyanosis. No jaundice. No rashes noted. No cellulitis noted. EXTREMITIES: 2+ peripheral pulses. No evidence of peripheral edema. No calf tenderness noted. NEUROLOGIC: Cranial nerves II-XII intact. PSYCHIATRIC: Awake, alert, and oriented X 3. Appropriate affect. Intact judgement and insight. - Labs CBC & Chem 7: 12/05/17 06:54 12/04/17 06:46 Labs: Abnormal Lab Results - Last 24 Hours (Table) 12/04/17 12/04/17 12/04/17 Range/Units 06:46 11:47 16:50 POC Glucose (mg/dL) 171 H 169 H (75-99) mg/dL Hemoglobin A1c 9.2 H (4.0-6.0) % 12/04/17 12/05/17 12/05/17 Range/Units 20:09 05:54 06:54 POC Glucose (mg/dL) 240 H 237 H 229 H (75-99) mg/dL Hemoglobin A1c (4.0-6.0) % Assessment and Plan Plan: ASSESSMENT: Right lower quadrant pain secondary to acute appendicitis, s/p laparoscopic appendectomy with small bowel perforation Leukocytosis, secondary to above Diabetes mellitus, type II Hyperglycemia Hypertension Morbid obesity: BMI 48.8 Remote history of nicotine dependence PLAN: Continue postoperative surgical care per Dr. Sewell Pain control Activity as tolerated Wean oxygen as tolerated Encourage PO intake before taking [place] Refer discharge plan to Dr. Sewell Nurse practitioner note has been reviewed by physician. Signing provider agrees with the documented findings, assessment, and plan of care.
--- NOTE | 2017-12-05 10:52 | XR ---
EXAMINATION TYPE: XR chest 1V DATE OF EXAM: 12/05/2017 HISTORY: Shortness of breath. COMPARISON: 09/07/2015 TECHNIQUE: Single view of the chest is submitted. FINDINGS: Demonstrated are scattered senescent parenchymal change. There is no evidence for focal infiltrate. The heart is stable. Hilar and mediastinal structures are within normal limits. Degenerative changes are seen of the dorsal spine. IMPRESSION: 1. Chronic changes without evidence for acute pulmonary disease.
--- NOTE | 2017-12-05 10:54 | ECHOF ---
Referral Reason:syncope, LV function MEASUREMENTS -------- HEIGHT: 182.9 cm WEIGHT: 158.8 kg BP: IVSd: 1.2 cm (0.6 - 1.1) LVIDd: 3.6 cm (3.9 - 5.3) LVPWd: 1.5 cm (0.6 - 1.1) IVSs: 1.7 cm LVIDs: 1.8 cm LVPWs: 1.7 cm FINDINGS -------- Resting tachycardia (HR>100bpm). This was a technically difficult study with suboptimal views. Morbid Obesity Limited Study The left ventricular size is normal. There is mild concentric left ventricular hypertrophy. Overa ll left ventricular systolic function is low-normal with, an EF between 50 - 55 %. The RV was not well visualized. The left atrium was not well visualized. The right atrium was not well visualized. Lumason used The aortic valve was not well visualized. The mitral valve was not well visualized. The tricuspid valve was not well visualized. The pulmonic valve was not well visualized. CONCLUSIONS -------- 1. Resting tachycardia (HR>100bpm). 2. This was a technically difficult study with suboptimal views. 3. Morbid Obesity 4. Limited Study 5. The left ventricular size is normal. 6. There is mild concentric left ventricular hypertrophy. 7. Overall left ventricular systolic function is low-normal with, an EF between 50 - 55 %. 8. The RV was not well visualized. 9. The left atrium was not well visualized. 10. The right atrium was not well visualized. 11. Lumason used 12. The aortic valve was not well visualized. 13. The mitral valve was not well visualized. 14. The tricuspid valve was not well visualized. 15. The pulmonic valve was not well visualized. DIRECTOR OF NURSING: Florinda Thapa, [facility]
[2017-12-05 11:27] LABS: Glucose,Whole Blood 263 mg/dL (75-99)
--- NOTE | 2017-12-05 11:29 | P.CRDCN ---
History of Present Illness Consult date: 12/05/17 History of present illness: This is a 62-year-old gentleman was admitted to the hospital with abdominal pain and underwent laparoscopic cholecystectomy. Patient has been recovering fairly well. He has had some episodes of dizziness suggestive of vertigo. This morning patient got Toradol and also Elkins for pain management. Apparently patient was ready to be discharged and was ambulating in the hallway. When he returned to the room, patient complained to the nurse that he was not feeling well and was feeling dizzy. Subsequently she became unresponsive and fell in bed. Apparently he recovered within couple of minutes. Apparently he had a pulse and also blood pressure. Since then patient has been nauseated and sweaty and complaints of dizziness suggestive of vertigo. Denies any chest pain. Patient is shallow breathing but doesn't complain of any shortness of breath. His chest x-ray did not reveal any acute changes. His EKG showed a sinus rhythm and sinus tachycardia. Bedside echocardiogram showed normal LV function. Patient is having some troponin been drawn. At this point I think most probably patient had a reaction to the medication and developed vertigo. Patient is being treated with Zofran. We'll continue to follow his troponin values. Pulmonary evaluation is also pending. Remote possibility of pulmonary embolism to be constricted. He denies any significant abdominal pain. Abdomen is nontender. Patient had a previous cardiac catheterization 2011. He was not performed having significant obstructive disease at the time Review of Systems As per the chart Past Medical History Past Medical History: Diabetes Mellitus, Hypertension History of Any Multi-Drug Resistant Organisms: None Reported Past Surgical History: Adenoidectomy, Cholecystectomy, Orthopedic Surgery, Tonsillectomy Past Psychological History: No Psychological Hx Reported Smoking Status: Former smoker Past Alcohol Use History: Occasional Past Drug Use History: None Reported - Past Family History Mother Additional Family Medical History / Comment(s): emphysema Father Family Medical History: Diabetes Mellitus Additional Family Medical History / Comment(s): stroke Medications and Allergies Home Medications Medication Instructions Recorded Confirmed Type Lisinopril [Zestril] 10 mg PO DAILY 09/07/15 12/03/17 History [place]-3 Fatty Acids/Fish Oil [Fish 2 cap PO DAILY 09/07/15 12/03/17 History Oil 1,000 mg Softgel] Potassium Gluconate 595mg 595 mg PO DAILY 09/07/15 12/03/17 History metFORMIN HCL [Glucophage] 1,000 mg PO BID 09/07/15 12/03/17 History Glimepiride [Amaryl] 4 mg PO DAILY 12/03/17 12/03/17 History Acetaminophen Tab [Tylenol] 650 mg PO Q6HR PRN tab 12/05/17 Rx Amoxicillin/Potassium Clav 1 tab PO Q12HR #10 tab 12/05/17 Rx [Augmentin 875-125 Tablet] HYDROcodone/APAP 5-325MG [[place] 1 each PO Q4HR PRN #18 tab 12/05/17 Rx 5-325] Allergies Allergy/AdvReac Type Severity Reaction Status Date / Time No Known Allergies Allergy Verified 12/03/17 23:04 Physical Exam Vitals: Vital Signs Temp Pulse Pulse Resp BP BP BP 12/05/17 09:52 97.8 F 100 20 125/87 12/05/17 09:50 89 20 115/88 12/05/17 07:00 98.2 F 87 18 118/78 12/05/17 06:05 85 17 112/78 12/05/17 06:00 83 17 106/70 112/80 12/05/17 05:55 82 18 132/91 12/05/17 05:45 98.3 F 80 18 118/79 12/05/17 00:59 17 12/05/17 00:26 98.4 F 65 17 120/64 12/04/17 20:20 98.8 F 75 17 133/88 12/04/17 14:58 98.5 F 72 12 124/72 Pulse Ox 12/05/17 09:52 95 12/05/17 09:50 91 L 12/05/17 07:00 96 12/05/17 06:05 95 12/05/17 06:00 95 12/05/17 05:55 94 L 12/05/17 05:45 94 L 12/05/17 00:59 12/05/17 00:26 95 12/04/17 20:20 96 12/04/17 14:58 94 L Intake and Output 12/04/17 12/05/17 12/05/17 22:59 06:59 14:59 Intake Total 715 1313 240 Output Total 10 10 120 Balance 705 1303 120 Intake: Intake, IV Titration 175 773 Amount D5-0.45% NaCl with KCl 125 723 20Meq/l 1,000 ml @ 125 mls/hr IV .Q8H [facility] Rx#: [id number] Piperacillin-Tazobactam 3 50 50 .375 gm In Dextrose/Water 1 50ml.bag @ 12.5 mls/hr IVPB Q8H [facility] Rx#: [id number] Oral 540 540 240 Output: Drainage 10 10 20 Lower Abdomen 10 10 20 Emesis 100 Other: Voiding Method Toilet # Voids 1 1 # Bowel Movements 1 GENERAL EXAM: Patient is alert and oriented and seemed to be sweaty and shallow breathing HEENT: Normocephalic. NECK: No masses, no nuchal rigidity. CHEST: No chest wall deformity. LUNGS: Equal air entry with no crackles or wheeze. HEART: S1 and S2 normal with no audible mumurs or gallops. Regular rhythm, slightly tachycardic ABDOMEN: Soft and nontender SKIN: No rashes CENTRAL NERVOUS SYSTEM: No focal deficits. EXTREMITIES: No cyanosis, clubbing or edema. Results 12/05/17 06:54 12/04/17 06:46 CBC 12/05/17 Range/Units 06:54 WBC 9.9 (3.8-10.6) k/uL RBC 4.71 (4.30-5.90) m/uL Hgb 14.2 (13.0-17.5) gm/dL Hct 43.3 (39.0-53.0) % Plt Count 194 (150-450) k/uL Current Medications Generic Name Dose Route Start Last Admin Trade Name Freq PRN Reason Stop Dose Admin Acetaminophen 650 mg 12/03/17 20:54 Tylenol Tab PO Q6HR PRN Mild Pain or Fever >= 100.5 Hydrocodone Bitart/Acetaminophen 1 each 12/03/17 20:54 12/05/17 05:25 [place] 5-325 PO 1 each Q4HR PRN Administration Moderate Pain Glimepiride 4 mg 12/04/17 07:30 12/05/17 08:00 Amaryl PO 4 mg AC-BRKFST AMADA Administration Heparin Sodium (Porcine) 5,000 unit 12/04/17 00:00 12/05/17 09:29 Heparin SQ 5,000 unit Q8HR [facility] Administration Hydromorphone HCl 1 mg 12/03/17 20:54 12/03/17 22:04 Dilaudid IVP 1 mg Q3HR PRN Administration Moderate to Severe Pain Piperacillin/Tazobactam/ 50 mls @ 12.5 mls/hr 12/04/17 04:00 12/05/17 04:17 Dextrose 3.375 gm/ IV Solution IVPB 12.5 mls/hr Q8H [facility] Administration Potassium Chloride/Dextrose/Sod Cl 1,000 mls @ 125 mls/hr 12/03/17 22:00 04:17 D5%-1/2ns-Kcl 20 Meq/L Iv Solution IV 125 mls/hr .Q8H [facility] Administration Insulin Aspart 0 unit 12/04/17 07:30 12/05/17 07:59 Novolog SQ 7 unit ACHS AMADA Administration Protocol Ketorolac Tromethamine 30 mg 12/03/17 22:00 12/05/17 04:16 Toradol IVP 12/05/17 16:01 30 mg Q6H [facility] Administration Lisinopril 10 mg 12/04/17 09:00 12/05/17 09:29 Zestril PO 10 mg DAILY [facility]ADA Administration Metformin HCl 1,000 mg 12/04/17 09:00 12/05/17 09:29 Glucophage PO 1,000 mg BID [facility]ADA Administration Metoclopramide HCl 10 mg 12/03/17 20:54 Reglan IVP Q6H PRN Nausea And Vomiting Naloxone HCl 0.2 mg 12/03/17 20:54 Narcan IV Q2M PRN Opioid Reversal Ondansetron HCl 4 mg 12/03/17 20:54 12/05/17 07:54 Zofran IVP 4 mg Q8HR PRN Administration Nausea And Vomiting Pantoprazole Sodium 40 mg 12/05/17 07:30 12/05/17 08:00 Protonix PO 40 mg AC-BRKFST AMADA Administration Intake and Output 12/04/17 12/05/17 12/05/17 22:59 06:59 14:59 Intake Total 715 1313 240 Output Total 10 10 120 Balance 705 1303 120 Intake: Intake, IV Titration 175 773 Amount D5-0.45% NaCl with KCl 125 723 20Meq/l 1,000 ml @ 125 mls/hr IV .Q8H [facility] Rx#: [id number] Piperacillin-Tazobactam 3 50 50 .375 gm In Dextrose/Water 1 50ml.bag @ 12.5 mls/hr IVPB Q8H [facility] Rx#: [id number] Oral 540 540 240 Output: Drainage 10 10 20 Lower Abdomen 10 10 20 Emesis 100 Other: Voiding Method Toilet # Voids 1 1 # Bowel Movements 1 12/05/17 06:54 12/04/17 06:46 EKG Interpretations (text) Sinus rhythm and sinus tachycardia with nonspecific T-wave changes. Right axis Assessment and Plan (1) Syncope Current Visit: Yes Status: Acute Code(s): R55 - SYNCOPE AND COLLAPSE SNOMED Code(s): 710350978 (2) Status post appendectomy Current Visit: Yes Status: Acute Code(s): Z90.49 - ACQUIRED ABSENCE OF OTHER SPECIFIED PARTS OF DIGESTIVE TRACT SNOMED Code(s): 789222969 (3) Vertigo Current Visit: Yes Status: Acute Code(s): R42 - DIZZINESS AND GIDDINESS SNOMED Code(s): 162618884 Plan: This syncope appears to be noncardiac. The possibility of reaction to the pain medication to be considered. If patient continues to have this is dizziness, computed tomography scan of the head may be required and neurology consult may be required. Pulmonary consult is pending. We'll continue to monitor for any cardiac arrhythmias. We'll follow his troponin values. Further recommendations will depend upon the clinical course. The remote possible to pulmonary embolism also to be considered. We'll await the input from neuro ophthalmologist.
[2017-12-05] MEDS ORDERED: ONDANSETRON 4 MG/2 ML VIAL IVP PRN (11:49)
[2017-12-05] MEDS ORDERED: SODIUM CHLORIDE 0.9% 500 ML 500 ML IV ONE (11:50)
[2017-12-05 11:56] LABS: Creatine Kinase MB 3.4 ng/mL (0.0-2.4)
[2017-12-05 12:06] LABS: Troponin I 0.455 ng/mL (0.000-0.034)
[2017-12-05 12:15] LABS: ABG Base Excess -0.2 mmol/L; ABG HCO3 25 mmol/L (21-25); ABG Oxygen Saturation 96.8 % (94-97); ABG PCO2 41 mmHg (35-45); ABG PH 7.39 (7.35-7.45); ABG PO2 83 mmHg (83-108); ABG TCO2 26 mmol/L (19-24)
[2017-12-05 12:25] LABS: Anion Gap 8 mmol/L; Blood Urea Nitrogen 14 mg/dL (9-20); Calcium 8.9 mg/dL (8.4-10.2); Carbon Dioxide 25 mmol/L (22-30); Chloride 103 mmol/L (98-107); Glucose 240 mg/dL (74-99); Potassium 4.5 mmol/L (3.5-5.1); Sodium 136 mmol/L (137-145)
--- NOTE | 2017-12-05 12:29 | P.CNPUL ---
History of Present Illness Consult date: 12/05/17 Reason for consult: other Chief complaint: Syncope/near syncope, diaphoresis History of present illness: Pulmonary consult dated 12/05/2017 This is a 62-year-old male status post laparoscopic appendectomy. The procedure was done by Syed Sewell. The patient apparently presented with 48 hours and right lower quadrant abdominal pain which was increasing in severity. There was nausea without vomiting and decreased appetite. No fevers. Computed tomography scan in the ER revealed evidence of a appendicolith without inflammatory changes. Repeat computed tomography scan with oral contrast subsequently, showed increased inflammatory changes. Apparently, today, while in the room on the surgical floor, the patient was given his lisinopril apparently got up out of bed and became very diaphoretic and had a near syncopal /syncopal episode. It was thought to be related to either orthostasis and/or a vasovagal episode. The rapid response team was called and the patient was going to be eventually transferred up to the sixth floor. When we went to go see him, he was diaphoretic but otherwise stable. Apparently the primary did not want to move him until cardiology saw him. EKG and cardiac enzymes were apparently ordered. The patient has a history of morbid obesity, diabetes mellitus and hypertension. The patient apparently was a former smoker and occasionally uses alcohol. No illicit drug use. Previous surgeries included an orthopedic procedure cholecystectomy adenoidectomy and tonsillectomy. The echocardiogram was limited because of the patient's body habitus looked relatively normal. Cardiology thought the syncopal episode was likely noncardiac and may relate to pain medications or blood pressure medications. They recommended a pulmonary consultation and a neurology consultation. His troponin was 0.455 and chest x-ray was essentially unremarkable. Review of Systems A 14 point review of system is positive for lightheadedness dizziness and a syncopal/near syncopal episode with diaphoresis. Past Medical History Past Medical History: Diabetes Mellitus, Hypertension History of Any Multi-Drug Resistant Organisms: None Reported Past Surgical History: Adenoidectomy, Cholecystectomy, Orthopedic Surgery, Tonsillectomy Past Psychological History: No Psychological Hx Reported Smoking Status: Former smoker Past Alcohol Use History: Occasional Past Drug Use History: None Reported - Past Family History Mother Additional Family Medical History / Comment(s): emphysema Father Family Medical History: Diabetes Mellitus Additional Family Medical History / Comment(s): stroke Medications and Allergies Home Medications Medication Instructions Recorded Confirmed Type Lisinopril [Zestril] 10 mg PO DAILY 09/07/15 12/03/17 History [place]-3 Fatty Acids/Fish Oil [Fish 2 cap PO DAILY 09/07/15 12/03/17 History Oil 1,000 mg Softgel] Potassium Gluconate 595mg 595 mg PO DAILY 09/07/15 12/03/17 History metFORMIN HCL [Glucophage] 1,000 mg PO BID 09/07/15 12/03/17 History Glimepiride [Amaryl] 4 mg PO DAILY 12/03/17 12/03/17 History Acetaminophen Tab [Tylenol] 650 mg PO Q6HR PRN tab 12/05/17 Rx Amoxicillin/Potassium Clav 1 tab PO Q12HR #10 tab 12/05/17 Rx [Augmentin 875-125 Tablet] HYDROcodone/APAP 5-325MG [[place] 1 each PO Q4HR PRN #18 tab 12/05/17 Rx 5-325] Allergies Allergy/AdvReac Type Severity Reaction Status Date / Time No Known Allergies Allergy Verified 12/03/17 23:04 Physical Exam Osteopathic Statement: *. No significant issues noted on an osteopathic structural exam other than those noted in the History and Physical/Consult. Vitals: Vital Signs Temp Pulse Pulse Resp BP BP BP 12/05/17 11:15 95 129/73 12/05/17 09:52 97.8 F 100 20 125/87 12/05/17 09:50 89 20 115/88 12/05/17 07:00 98.2 F 87 18 118/78 12/05/17 06:05 85 17 112/78 12/05/17 06:00 83 17 106/70 112/80 12/05/17 05:55 82 18 132/91 12/05/17 05:45 98.3 F 80 18 118/79 12/05/17 00:59 17 12/05/17 00:26 98.4 F 65 17 120/64 12/04/17 20:20 98.8 F 75 17 133/88 12/04/17 14:58 98.5 F 72 12 124/72 Pulse Ox 12/05/17 11:15 97 12/05/17 09:52 95 12/05/17 09:50 91 L 12/05/17 07:00 96 12/05/17 06:05 95 12/05/17 06:00 95 12/05/17 05:55 94 L 12/05/17 05:45 94 L 12/05/17 00:59 12/05/17 00:26 95 12/04/17 20:20 96 12/04/17 14:58 94 L Intake and Output 12/04/17 12/05/17 12/05/17 22:59 06:59 14:59 Intake Total 715 1313 240 Output Total 10 10 120 Balance 705 1303 120 Intake: Intake, IV Titration 175 773 Amount D5-0.45% NaCl with KCl 125 723 20Meq/l 1,000 ml @ 125 mls/hr IV .Q8H [facility] Rx#: [id number] Piperacillin-Tazobactam 3 50 50 .375 gm In Dextrose/Water 1 50ml.bag @ 12.5 mls/hr IVPB Q8H [facility] Rx#: [id number] Oral 540 540 240 Output: Drainage 10 10 20 Lower Abdomen 10 10 20 Emesis 100 Other: Voiding Method Toilet # Voids 1 1 # Bowel Movements 1 Weight 158.757 kg No acute distress, laying flat in bed, with oxygen in place, somewhat diaphoretic. HEENT examination is grossly unremarkable. Mucous membranes are moist. No oral lesions. Neck supple. Full range of motion. No adenopathy thyromegaly or neck vein distention. Cardiovascular examination reveals regular rhythm rate. S1-S2 normal. No S3 or S4. No discernible murmur noted. Lungs reveal clear breath sounds. Her sounds are equal bilaterally. No adventitious lung sounds including wheezes rhonchi or crackles. Abdomen soft bowel sounds are heard. No masses or tenderness. Extremities are intact. No cyanosis clubbing or edema. Skin is without rash or lesion. Neurologic examination is brief but nonfocal. Results - Laboratory Findings CBC and BMP: 12/05/17 06:54 12/04/17 06:46 Abnormal lab findings: Abnormal Labs 12/03/17 12/03/17 12/04/17 19:26 21:22 06:46 WBC 12.5 H Neutrophils # 9.2 H Sodium Glucose POC Glucose (mg/dL) 164 H 208 H Hemoglobin A1c Total Creatine Kinase CK-MB (CK-2) Troponin I Total Protein Albumin 12/04/17 12/04/17 12/04/17 06:46 06:46 06:52 WBC Neutrophils # Sodium 135 L Glucose 226 H POC Glucose (mg/dL) 215 H Hemoglobin A1c 9.2 H Total Creatine Kinase CK-MB (CK-2) Troponin I Total Protein 6.1 L Albumin 3.2 L 12/04/17 12/04/17 12/04/17 11:47 16:50 20:09 WBC Neutrophils # Sodium Glucose POC Glucose (mg/dL) 171 H 169 H 240 H Hemoglobin A1c Total Creatine Kinase CK-MB (CK-2) Troponin I Total Protein Albumin 12/05/17 12/05/17 12/05/17 05:54 06:54 09:52 WBC Neutrophils # Sodium Glucose POC Glucose (mg/dL) 237 H 229 H 221 H Hemoglobin A1c Total Creatine Kinase CK-MB (CK-2) Troponin I Total Protein Albumin 12/05/17 12/05/17 10:47 11:21 WBC Neutrophils # Sodium Glucose POC Glucose (mg/dL) 263 H Hemoglobin A1c Total Creatine Kinase 250 H CK-MB (CK-2) 3.4 H Troponin I 0.455 H* Total Protein Albumin - Diagnostic Findings Chest x-ray: report reviewed (Labs, x-rays, and medications are reviewed.), image reviewed Assessment and Plan Assessment: Assessment Near syncope/syncope, which likely reflects either orthostatic changes and/or a vasovagal episode. This may also relate to the patient's recent administration of lisinopril. I doubt significant pulmonary disease such as pulmonary embolism although given his recent surgery and his morbid obesity, PE should be ruled out. Status post recent laparoscopic appendectomy for acute appendicitis History of diabetes mellitus History of hypertension Rule out sleep apnea syndrome/pickwickian syndrome Plan: Plan dated 12/05/2017 I will go ahead and order a CT angiogram to rule out pulmonary embolism. CBC today is normal. Electrolyte profile from yesterday looks relatively normal save for an elevated glucose. BUN and creatinine are normal. Troponin was elevated to 0.455 and cardiology has been consulted. Additional recommendations and suggestions are forthcoming. I did speak to the surgeon. Time with Patient: Greater than 30
--- NOTE | 2017-12-05 13:50 | CT ---
EXAMINATION TYPE: CT angio chest DATE OF EXAM: 12/05/2017 COMPARISON: 02/10/2015 HISTORY: Hypoxia CT DLP: 1266.8 mGycm CONTRAST: CT chest with contrast and 3D reconstruction with MIP imaging is performed with IV Contrast, patient injected with 100 mL of Isovue 370. Contrast-enhanced CT of the chest was performed through the course of the pulmonary arteries with masoud g and mediastinal window settings submitted. 3D reconstruction with MIP imaging was also performed. PULMONARY ARTERIES: There is large pulmonary embolus noted with saddle component identified within th e main pulmonary arteries. Thrombus extends to the lower and upper pulmonary arterial branches second eri and tertiary branches. There is flattening of the intraventricular septum. Right ventricle is als o enlarged. There is inferior vena caval contrast reflux. LUNGS: The lungs are clear and free of infiltrate. No evidence for atelectasis. No pulmonary nodul e or mass is detected. No pleural effusion. MEDIASTINUM: Thoracic aorta is of normal caliber,however, evaluation is limited given timing of the contrast bolus. If there is concern for thoracic aortic pathology consider AARON. Correlate clinicall y . The heart is not enlarged. No evidence for mediastinal mass. No mediastinal lymph nodes greater than 1cm. HILAR STRUCTURES: No evidence for mass. No hilar lymph nodes greater than 1 cm. UPPER ABDOMEN: No significant abnormality is seen. IMPRESSION: 1. Large pulmonary embolism with saddle component. Evidence of right ventricular strain. Nurse Neely was notified of the right aforementioned findings via telephone at the time of exam complet
[2017-12-05] MEDS ORDERED: HEPARIN SODIUM,PORCINE 10,000 UNIT/ML 1 ML VIAL IV ONE (13:52)
[2017-12-05] MEDS ORDERED: HEPARIN SODIUM,PORCINE 5,000 UNIT/ML 1 ML VIAL IV PRN (13:52)
[2017-12-05] MEDS ORDERED: HEPARIN SOD,PORK IN 0.45% NACL 25,000 UNIT in 0.45% NACL 1 500ML.BAG IV SCH (14:00)
--- NOTE | 2017-12-05 15:22 | P.DS ---
Providers Date of admission: 12/03/17 20:57 Attending physician: Syed Sewell Consults: 12/03/17 20:54 Consult Physician Routine Consulting Provider: Cody He Consult Reason/Comments: Medical management Do you want consulting provider notified?: Yes 12/05/17 09:59 Consult Physician Urgent Consulting Provider: Narinder Escobar Consult Reason/Comments: Tachycardic collapse Do you want consulting provider notified?: Yes 12/05/17 10:01 Consult Physician Urgent Consulting Provider: Adán Muro Consult Reason/Comments: episdode hypoxia Do you want consulting provider notified?: Yes Primary care physician: Stated None - Discharge Diagnosis(es) (1) Acute appendicitis Patient admitted to the hospital with acute appendicitis. Underwent laparoscopic appendectomy. Was doing fairly well. This morning he got up to ambulate. He was actually intending to go home today. Tolerating a regular diet. He was afebrile with stable vital signs. Shortly after starting his walk he became short of breath and nauseated. He felt diaphoretic. He was taken back to bed. He was somewhat lethargic initially. Troponins were checked and were elevated. CT angiogram revealed a large pulmonary embolism. Echo shows some right heart strain. He was seen by both cardiology and pulmonary. There are advising the patient be transferred to a higher level of care for possible endoluminal treatment of his pulmonary embolism. Transfer arrangements are being made currently. He does have a drain in place in the suprapubic location that is adjacent to the base of the cecum. This can be removed when the patient is more stable. Patient will follow up with me post discharge from his next hospitalization. Current Visit: Yes Status: Acute Plan - Discharge Summary Discharge Rx Participant: Yes New Discharge Prescriptions: New Acetaminophen Tab [Tylenol] 650 mg PO Q6HR PRN tab PRN Reason: Mild Pain Or Fever >= 100.5 Amoxicillin/Potassium Clav [Augmentin 875-125 Tablet] 1 tab PO Q12HR #10 tab HYDROcodone/APAP 5-325MG [[place] 5-325] 1 each PO Q4HR PRN #18 tab PRN Reason: Moderate Pain Continue Lisinopril [Zestril] 10 mg PO DAILY metFORMIN HCL [Glucophage] 1,000 mg PO BID Potassium Gluconate 595mg 595 mg PO DAILY [place]-3 Fatty Acids/Fish Oil [Fish Oil 1,000 mg Softgel] 2 cap PO DAILY Glimepiride [Amaryl] 4 mg PO DAILY Discharge Medication List Lisinopril [Zestril] 10 mg PO DAILY 09/07/15 [History] [place]-3 Fatty Acids/Fish Oil [Fish Oil 1,000 mg Softgel] 2 cap PO DAILY [History] Potassium Gluconate 595mg 595 mg PO DAILY 09/07/15 [History] metFORMIN HCL [Glucophage] 1,000 mg PO BID 09/07/15 [History] Glimepiride [Amaryl] 4 mg PO DAILY 12/03/17 [History] Acetaminophen Tab [Tylenol] 650 mg PO Q6HR PRN tab 12/05/17 [Rx] Amoxicillin/Potassium Clav [Augmentin 875-125 Tablet] 1 tab PO Q12HR #10 tab [Rx] HYDROcodone/APAP 5-325MG [[place] 5-325] 1 each PO Q4HR PRN #18 tab 12/05/17 [Rx] Follow up Appointment(s)/Referral(s): Syed Sewell MD [Medical Doctor] - 12/10/17 2:50 pm Cody He DO [Doctor of Osteopathic Medicine] - 12/22/17 2:30 pm Activity/Diet/Wound Care/Special Instructions: No tub bath for six weeks. Shower daily. No lifting over 10 pounds for the next 4 weeks. Monitor KRUPA drain and record. May use ice packs to surgical site. No driving while taking narcotic for pain. May use [id number] stool softeners for constipation Low-fat diet Discharge Disposition: HOME SELF-CARE
[2017-12-05 15:27] LABS: INR 1.1 (<1.2); Partial Thromboplastin Time 86.5 sec (22.0-30.0); Prothrombin Time 10.7 sec (9.0-12.0)
[2017-12-05 15:50] VITALS: BP 142/85; PULSE 92; RESP 18; TEMP 97.4
--- NOTE | 2017-12-10 08:35 | CDI ---
Documentation Clarification Form Date: 12/10/2017 CDS: Natividad Otto, CCS, CCDS Admit Date: 12/03/2017 Patient Name: Neptali Rubio Discharge Date: 12/05/2017 ATTENTION: The Clinical Documentation Specialists (CDI) and [facility] Coding Staff appreciate your assistance in clarifying documentation. Please respond to the clarification below the line at the bottom and electronically sign. The CDI & [facility] Coding staff will review the response and follow-up if needed. Please note: Queries are made part of the Legal Health Record. If you have any questions, please contact the author of this message via ITS. Dr. Syed Sewell: Per the 12/05 nursing note: "Per Dr. Upton CT angio Large PulKhmonary embolism with saddle component. Evidence of right ventricular strain. Called to Naty Garcia MANAGER OF ORGANIZATIONAL DEVELOPMENT notified of results, orders received, heparin gtt started, Patient to be transferred to [facility], Dr. Sewell in to see family explained test results and plan of care for transfer. King cath inserted prior to discharge, patient to be transferred to ICU 2 at [facility] report called to Audra. Dr. Rodriguez accepting. Family at bedside at time of transfer. Patient alert and oriented, and stable. Patient transferred via EMS." Patients Admitting Diagnosis: Acute Appendicitis with perforation Post-Operative Diagnosis: Same Procedure performed: Laparoscopic Appendectomy History/Risk Factors: Morbid Obesity w/BMI :48, Former Smoker, DM. Clinical Indicators: As above. CT Chest confirmed saddle PE postoperatively. Treatment: IV Heparin drip, transferred to [facility] ICU for higher level of care. In order to accurately reflect this patients severity of illness, please clarify if the saddle PE is a complication of the surgical procedure? Yes _X___ No Other, please specify Unable to determine ___ MTDD
--- NOTE | 2017-12-15 08:04 | CDI ---
Last Revision, February 2017 Documentation Clarification Form Date: 12/10/2017 8:18:00 AM From: Natividad OttoBENJAMIN, CCDS Admit Date: 12/03/2017 8:57:00 PM Patient Name: Neptali Rubio Visit Number: [id number] Discharge Date: 12/05/2017 ATTENTION: The Clinical Documentation Specialists (CDI) and [facility] Coding Staff appreciate your assistance in clarifying documentation. Please respond to the clarification below the line at the bottom and electronically sign. The CDI & [facility] Coding staff will review the response and follow-up if needed. Please note: Queries are made part of the Legal Health Record. If you have any questions, please contact the author of this message via ITS. Syed Sales MD: Per the 12/05 nursing note: "Per Dr. Upton CT angio Large PulKhmonary embolism with saddle component. Evidence of right ventricular strain. Called to Naty Garcia [employer] notified of results, orders received, heparin gtt started, Patient to be transferred to [facility], Dr. Sewell in to see family explained test results and plan of care for transfer. King cath inserted prior to discharge, patient to be transferred to ICU 2 at [facility] report called to Audra. Dr. Rodriguez accepting. Family at bedside at time of transfer. Patient alert and oriented, and stable. Patient transferred via EMS." Patients Admitting Diagnosis: Acute Appendicitis with perforation Post-Operative Diagnosis: Same Procedure performed: Laparoscopic Appendectomy History/Risk Factors: Morbid Obesity w/BMI :48, Former Smoker, DM. Clinical Indicators: As above. CT Chest confirmed saddle PE postoperatively. Treatment: IV Heparin drip, transferred to [facility] ICU for higher level of care. In order to accurately reflect this patients severity of illness, please clarify if the saddle PE is a complication of the surgical procedure? Yes ____ No Other, please specify: Unable to determine MTDD
== END 2017-12-05 15:40 | disposition short-term general hospital (02) | DRG 338 ==
LOC: 3SUR 18:53 → OBSVTOIN 20:57 → 6SEL 12-05 12:47
PROVIDERS: ADMIT Surgery; ATTEND Surgery
PROC: 0DTJ4ZZ Resection of Appendix, Percutaneous Endoscopic Approach (ICD-10-PCS; principal; 2017-12-03 19:00)
DX: K35.3 Acute appendicitis with localized peritonitis (principal); I26.92 Saddle embolus of pulmonary artery without acute cor pulmonale; T81.718A Complication of other artery following a procedure, not elsewhere classified, initial encounter; Z68.42 Body mass index [BMI] 45.0-49.9, adult; E11.65 Type 2 diabetes mellitus with hyperglycemia; E66.01 Morbid (severe) obesity due to excess calories; K38.1 Appendicular concretions; I10 Essential (primary) hypertension; Z71.3 Dietary counseling and surveillance; Z79.84 Long term (current) use of oral hypoglycemic drugs; Z79.899 Other long term (current) drug therapy; Z90.49 Acquired absence of other specified parts of digestive tract; Z87.891 Personal history of nicotine dependence; Z82.3 Family history of stroke; Z83.3 Family history of diabetes mellitus; Z82.5 Family history of asthma and other chronic lower respiratory diseases
CPT/HCPCS: 36600; 71045; 71275; 80048; 80053; 82550; 82553; 82805; 83036; 84484; 85025; 85610; 85730; 88304; 93005; 93306

== ENCOUNTER → 2017-12-03 | Outpatient (CLI) | payer OTHER ==
[2017-12-03 16:26] LABS: Blood Urea Nitrogen 13 mg/dL (9-20)
--- NOTE | 2017-12-03 18:21 | CT ---
EXAMINATION TYPE: CT abdomen pelvis w con DATE OF EXAM: 12/03/2017 COMPARISON: 12/02/2017 HISTORY: Right lower quadrant abdominal pain. CT DLP: 2676 mGycm Automated exposure control for dose reduction was used. TECHNIQUE: Helical acquisition of images was performed from the lung bases through the pelvis. CONTRAST: Performed with Oral Contrast and with IV Contrast, patient injected with 100ml mL of Isovue M300. FINDINGS: Lung bases are clear of consolidation. There is a 1 cm area of faint calcification or enhancement on the surface of the posterior right lobe of the liver. This could be small vascular malformation or gr anuloma. Spleen and pancreas appear normal. There are clips from cholecystectomy. Bile ducts are not dilated. There is no adrenal mass. Kidneys show satisfactory contrast opacification. There is no hydronephrosi s. Ureters are not dilated. There is no retroperitoneal or mesenteric adenopathy. There is no ascites . There is incarcerated umbilical hernia that contains mesenteric fat. There is no inguinal hernia. B ladder distends smoothly. I see no intestinal wall thickening. There are no dilated loops. Abdominal aorta is atheromatous. The appendix is thickened and measures up to 1.5 cm. There is very minimal fat stranding around the a ppendix. This is a change compared to yesterday. There is probably an appendicolith. Appendix appears to have increased compared to exam yesterday. IMPRESSION: APPENDIX APPEARS INCREASED WITH SOME MILD SURROUNDING FAT STRANDING COMPARED TO YESTERDAY AND IS SUGG ESTIVE OF APPENDICITIS.
== END | disposition home or self-care (01) ==
LOC: RADCTMAIN 15:57
PROVIDERS: ATTEND Surgery
DX: R10.31 Right lower quadrant pain (principal)
CPT/HCPCS: 82565; 84520; 74177; 36415; Q9967

== ENCOUNTER → 2023-05-24 | Outpatient (CLI) | payer MEDICARE ==
[2023-05-24 12:57] LABS: Basophils # (A) 0.07 X 10*3/uL (0.00-0.10); Basophils % (A) 0.7 %; Eosinophils # (A) 0.22 X 10*3/uL (0.04-0.35); Eosinophils % (A) 2.3 %; HCT 49.3 % (39.6-50.0); HGB 16.4 g/dL (13.0-17.0); Lymphocytes # (A) 2.78 X 10*3/uL (0.90-5.00); Lymphocytes % (A) 29.2 %; MCH 29.7 pg (27.0-32.0); MCHC 33.3 g/dL (32.0-37.0); MCV 89.3 FL (80.0-97.0); Mean Platelet Volume 9.6 FL (9.5-12.2); Monocytes # (A) 0.73 X 10*3/uL (0.20-1.00); Monocytes % (A) 7.7 %; NRBC Per 100 WBC 0 X 10*3/uL (0.00-0.01); Neutrophils # (A) 5.68 X 10*3/uL (1.80-7.70); Neutrophils % (A) 59.8 %; Platelet Count 247 X 10*3/uL (140-440); RBC 5.52 X 10*6/uL (4.40-5.60); RDW 13.1 % (11.5-14.5); WBC 9.51 X 10*3/uL (4.50-10.00)
[2023-05-24 13:48] LABS: ALT 28 U/L (10-49); AST 24 U/L (14-35); Albumin 4.3 g/dL (3.8-4.9); Albumin/Globulin Ratio 1.54 Ratio (1.60-3.17); Alkaline Phosphatase 61 U/L (41-126); Blood Urea Nitrogen 20.7 mg/dL (9.0-27.0); Calcium 9.6 mg/dL (8.7-10.3); Chloride 105 mmol/L (96-109); Chol/HDL Ratio 4.11 Ratio; Globulin 2.8 g/dL (1.6-3.3); Glucose 150 mg/dL (70-110); LDL Cholesterol,Calculated 78.7 mg/dL (0.0-131.0); Potassium 4.8 mmol/L (3.5-5.5); Sodium 141 mmol/L (135-145); Total Bilirubin 0.4 mg/dL (0.3-1.2); Total Protein 7.1 g/dL (6.2-8.2)
[2023-05-25 08:08] LABS: Microalbumin Creatinine Ratio <12 mg/g Cr (0-30); Urine Creatinine 96.8 mg/dL (39.0-259.0)
== END | disposition home or self-care (01) ==
LOC: LABWHC1 08:16
PROVIDERS: ATTEND Internal Medicine
DX: Z00.00 Encounter for general adult medical examination without abnormal findings (principal); Z12.5 Encounter for screening for malignant neoplasm of prostate; E11.65 Type 2 diabetes mellitus with hyperglycemia; E29.1 Testicular hypofunction; E55.9 Vitamin D deficiency, unspecified
CPT/HCPCS: 80061; 80053; 85025; 84403; 82306; 82043; 82570; 83036; 36415; G0103

== ENCOUNTER → 2023-10-18 | Outpatient (CLI) | payer MEDICARE | END | disposition home or self-care (01) | LOC: LABWHC1 07:51 | PROVIDERS: ATTEND Internal Medicine | DX: E11.65 Type 2 diabetes mellitus with hyperglycemia (principal) | CPT/HCPCS: 36415; 83036 ==

== ENCOUNTER → 2024-03-09 | Outpatient (CLI) | payer MEDICARE ==
[2024-03-09 10:25] LABS: Microalbumin Creatinine Ratio <15 mg/g Cr (0-30); Urine Creatinine 82.5 mg/dL (39.0-259.0)
[2024-03-09 10:27] LABS: ALT 41 U/L (10-49); AST 32 U/L (14-35); Albumin 4.5 g/dL (3.8-4.9); Albumin/Globulin Ratio 1.36 Ratio (1.60-3.17); Alkaline Phosphatase 67 U/L (41-126); BUN/Creat Ratio 17.82 Ratio (12.00-20.00); Blood Urea Nitrogen 19.6 mg/dL (9.0-27.0); Calcium 9.5 mg/dL (8.7-10.3); Carbon Dioxide 24.7 mmol/L (21.6-31.8); Chloride 101 mmol/L (96-109); Chol/HDL Ratio 4.51 Ratio; Globulin 3.3 g/dL (1.6-3.3); Glucose 122 mg/dL (70-110); LDL Cholesterol,Calculated 82.8 mg/dL (0.0-131.0); Potassium 4.2 mmol/L (3.5-5.5); Sodium 138 mmol/L (135-145); Total Bilirubin 0.6 mg/dL (0.3-1.2); Total Protein 7.8 g/dL (6.2-8.2)
== END | disposition home or self-care (01) ==
LOC: LABWHC1 08:11
PROVIDERS: ATTEND Family Medicine
DX: E11.65 Type 2 diabetes mellitus with hyperglycemia (principal); Z79.4 Long term (current) use of insulin
CPT/HCPCS: 36415; 80053; 80061; 82043; 82570; 83036

== ENCOUNTER → 2024-07-10 | Outpatient (CLI) | payer MEDICARE ==
[2024-07-10 13:52] LABS: ALT 30 U/L (10-49); AST 27 U/L (14-35); Albumin/Globulin Ratio 1.48 Ratio (1.60-3.17); Alkaline Phosphatase 60 U/L (41-126); BUN/Creat Ratio 21.78 Ratio (12.00-20.00); Blood Urea Nitrogen 19.6 mg/dL (9.0-27.0); Calcium 9.2 mg/dL (8.7-10.3); Carbon Dioxide 22.1 mmol/L (21.6-31.8); Chloride 104 mmol/L (96-109); Globulin 2.7 g/dL (1.6-3.3); Glucose 144 mg/dL (70-110); LDL Cholesterol,Calculated 82.8 mg/dL (0.0-131.0); Potassium 4.7 mmol/L (3.5-5.5); Sodium 138 mmol/L (135-145); Total Bilirubin 0.5 mg/dL (0.3-1.2); Total Protein 6.7 g/dL (6.2-8.2)
[2024-07-10 19:27] LABS: Microalbumin Creatinine Ratio <10 mg/g Cr (0-30)
== END | disposition home or self-care (01) ==
LOC: LABWHC1 07:46
PROVIDERS: ATTEND Internal Medicine
DX: E11.65 Type 2 diabetes mellitus with hyperglycemia (principal); Z79.4 Long term (current) use of insulin
CPT/HCPCS: 36415; 80053; 80061; 82043; 82570; 83036